=== PATIENT | female | born 1965 | race Caucasian/White ===

== ENCOUNTER → 2016-06-29 | Outpatient (CLI) | payer OTHER ==
[~2016-06-29] MED LIST: BCPILLS PO; CYAN500T13 PO; GADAVIST IV PRN; VENL150T33 PO
--- NOTE | 2016-06-29 15:21 | DIAGNOSTIC IMAGING REPORT ---
MRI OF THE CERVICAL SPINE COMBO CLINICAL HISTORY: Left-sided weakness. COMPARISON STUDY: No priors. TECHNIQUE: MRI of the cervical spine is performed utilizing various T1 and T2-weighted sequences in the axial and sagittal planes. Contrast-enhanced sequences are acquired following the IV administration of 8.5 cc of Gadavist. FINDINGS: Cervical spine: Vertebral body height and alignment are maintained throughout the cervical spine. The atlantodental articulation appears maintained. The spinous processes appear intact. No destructive bony lesion is seen. Intervertebral discs: There is degenerative disc desiccation seen throughout the cervical spine. No significant loss of height is identified. Spinal cord: There is effacement of the cord with questionable mild cord edema at the level of C4-C5, likely secondary to severe central canal stenosis. This is best seen on sagittal STIR image 8. The remainder of the cervical cord is normal in morphology and signal intensity. No abnormal enhancement is identified on the postcontrast sequences. C2-C3: Unremarkable. C3-C4: A posterior disc osteophyte complex abuts the ventral cord. Uncovertebral and facet arthropathy cause mild right greater than left neuroforaminal stenosis. C4-C5: A posterior disc osteophytic complex effaces the ventral cord. The minimum AP canal diameter at this level measures 5 mm. Uncovertebral and facet arthropathy cause severe bilateral neuroforaminal stenosis. C5-C6: A posterior disc osteophyte complex abuts the ventral cord. Uncovertebral and facet arthropathy cause moderate left and mild right neuroforaminal stenosis. C6-C7: Unremarkable. C7-T1: Unremarkable. Soft tissues: The prevertebral and paraspinous soft tissues are normal as visualized. Brain parenchyma: Partially imaged brain parenchyma at the skull base is within normal limits. IMPRESSION: 1. Multilevel cervical spondylosis as above. This is greatest from C3 -C4 through C5-C6. See discussion for detailed level by level analysis. 2. There is severe central canal stenosis at C4-C5 with effacement of the cervical cord at this level. There is questionable faint cord edema at this level likely secondary to severe central canal stenosis. Surgical consultation is advised. 3. The remainder of the cervical cord is normal in morphology and signal intensity. No abnormal cord enhancement is seen on the postcontrast images. Dictated: 06/29/2016 2:51 PM Transcribed: 06/29/2016 3:20 PM [email or web address] Electronically signed by: Casimiro Murray M.D. 06/29/2016 3:22 PM Dictated Date/Time: 06/29/2016 2:51 PM
== END | disposition home or self-care (01) ==
LOC: C.MRIBC 13:43
PROVIDERS: ATTEND Psychiatry & Neurology Neurology
DX: M62.81 Muscle weakness (generalized) (principal); M47.812 Spondylosis without myelopathy or radiculopathy, cervical region; M48.02 Spinal stenosis, cervical region